=== PATIENT | female | born 1950 | race Caucasian/White ===

== ENCOUNTER → 2018-07-31 | Outpatient (CLI) | payer MEDICARE ==
--- NOTE | 2018-07-31 14:38 | MRI ---
MRI right shoulder without contrast INDICATION: Rotator cuff tear shoulder pain and weakness initial encounter TECHNIQUE: Noncontrast MR imaging right shoulder standard protocol FINDINGS: Tendinopathy subscapularis with low-grade chronic partial tear. Macerated long head bicep high-grade partial to full thickness. Full-thickness retracted tear supraspinatus and infraspinatus retracted to the glenohumeral joint level. Narrowed subacromial space. Moderate to severe subacromial and subdeltoid bursitis. Moderate AC joint osteoarthrosis. Diffuse labral degeneration and mild glenohumeral arthrosis. Muscle atrophy generalized grade 2 volumetric and fatty. Intramuscular edema supraspinatus and infraspinatus indicating developing disuse atrophy. 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
== END ==
LOC: MRI 13:06
PROVIDERS: ATTEND Physical Medicine & Rehabilitation
DX: M75.121 Complete rotator cuff tear or rupture of right shoulder, not specified as traumatic (principal); M71.811 Other specified bursopathies, right shoulder; M19.011 Primary osteoarthritis, right shoulder

== ENCOUNTER → 2018-12-15 | Outpatient (CLI) | payer MEDICARE ==
--- NOTE | 2018-12-15 09:39 | RAD ---
EXAM DESCRIPTION: XR CHEST 2 VIEWS CLINICAL HISTORY: Z01.818 Encounter for other preprocedural examination. Shoulder surgery planning COMPARISON: None TECHNIQUE: PA/lateral FINDINGS: Heart size is normal. Tortuous aorta. The lungs are minimally hyperinflated. Mild apical emphysema. No edema, infiltrates or effusions. No acute bony abnormality. IMPRESSION: Mild hyperinflation with subtle apical emphysema No edema, infiltrates or effusions/acute cardiopulmonary process Electronically signed by: Vasile Nunez MD 12/15/2018 9:37 AM CDT
== END ==
LOC: RAD 08:55
PROVIDERS: ATTEND Obstetrics & Gynecology
DX: M75.121 Complete rotator cuff tear or rupture of right shoulder, not specified as traumatic (principal); J43.9 Emphysema, unspecified